=== PATIENT | male | born 1965 | race Caucasian/White ===

== ENCOUNTER → 2017-08-14 07:39 | Outpatient (CLI) | payer OTHER, SELFPAY ==
--- NOTE | 2017-08-14 07:49 | RAD_ITS ---
STUDY: X-RAY - RIGHT ANKLE REASON FOR EXAM: Male, 51 years old. Acute ankle pain TECHNIQUE: 3 view(s) of the ankle. COMPARISON: None. FINDINGS: Normal visualized distal tibia and fibula. Normal medial and lateral malleoli. Normal tibiotalar articulation and ankle mortise. Normal visualized talus and calcaneus. The visualized subtalar, talonavicular, calcaneocuboid and tarsal articulations are normal. The soft tissue structures are unremarkable. RAD/Ankle min 3 Views IMPRESSION: Normal x-ray examination of the ankle. Electronically Signed: Ander Lr DO at 11:43 EDT Tel , Service support ,
== END ==
PROVIDERS: Family Provider Internal Medicine; PCP Internal Medicine; Visit Provider Internal Medicine
DX: M25.571 Pain in right ankle and joints of right foot (principal)
CPT/HCPCS: 73610

== ENCOUNTER → 2018-02-13 14:17 | Outpatient (CLI) | payer OTHER, SELFPAY ==
--- NOTE | 2018-02-13 14:20 | US_ITS ---
STUDY: RENAL ULTRASOUND - COMPLETE REASON FOR EXAM: Male, 52 years old. BPH with urinary obstruction TECHNIQUE: Ultrasound evaluation of the kidneys was performed with real-time and static townsend-scale imaging. COMPARISON: None. FINDINGS: RIGHT KIDNEY: Normal location of the right kidney, which is normal in size. The right kidney measures 11.7 x 5.0 x 4.2 cm. There is a normal cortex of the right kidney. The renal cortex measures 1.2 cm. There is no right renal mass or cyst. There are no right renal calculi. There is no right hydronephrosis. DISTAL RIGHT URETER: There is non-visualization of the distal right ureter. There is no demonstrated right ureterovesical junction calculus. There is a visualized right ureteral jet. LEFT KIDNEY: Normal location of the left kidney, which is normal in size. The left kidney measures 10.7 x 5.5 x 4.2 cm. There is a normal cortex of the left kidney. The renal cortex measures 1.1 cm. There is no left renal mass or cyst. There are no left renal calculi. There is no left hydronephrosis. DISTAL LEFT URETER: There is non-visualization of the distal left ureter. There is no demonstrated left ureterovesical junction calculus. There is a visualized left ureteral jet. Prostate volume is measured at 32 mL BLADDER: The distended urinary bladder has a volume of 131 ml. The empty urinary bladder has a volume of less than 10 ml. There is a normal wall thickness of the distended urinary bladder. There is no demonstrated mass within the urinary bladder. There are no demonstrated bladder calculi. US/Kidney and Bladder IMPRESSION: 1. No hydronephrosis. 2. No significant postvoid urinary bladder residual volume. Electronically Signed: Silvino Ramos MD at 16:49 EST , Service support ,
== END ==
PROVIDERS: Family Provider Internal Medicine; PCP Internal Medicine; Referring Provider Internal Medicine; Visit Provider Internal Medicine
DX: N40.1 Benign prostatic hyperplasia with lower urinary tract symptoms (principal); N13.8 Other obstructive and reflux uropathy
CPT/HCPCS: 76770

== ENCOUNTER → 2018-02-24 13:05 | Outpatient (CLI) | payer SELFPAY ==
--- NOTE | 2018-02-24 13:13 | CT_ITS ---
STUDY: CARDIAC CALCIUM SCORING - CT CHEST REASON FOR EXAM: Male, 52 years old. Elevated cholesterol in a nonsmoker. RADIATION DOSAGE (If Supplied By Facility): CTDIvol = ( 12.19 ) mGy, DLP = ( 292.55 ) mGycm TECHNIQUE: Axial non-enhanced images were acquired through the heart for the sole purpose of measuring coronary artery calcium. Individualized dose optimization techniques were used for this CT. COMPARISON: Chest, November 03, 2014. FINDINGS: Visualized surrounding anatomy: There are calcified lymph nodes in the subcarinal space and left hilum. Left Main Coronary Artery: 0 Left Anterior Descending Artery: 0 Left Circumflex Artery: 0 Right Coronary Artery: 0 Other: Total Calcium Score: 0 CT/Limited Chest CT w/CCTA IMPRESSION: A Calcium Score of 0 places the patient in the approximate 0 percentile, based on the [facility] data calculator. Please go to: [email or web address].[email or web address] , for a description of the calculator. Electronically Signed: Shun Mane DO at 16:02 EST Tel [phone], Service support ,
[2018-02-24 13:48] VITALS: BP 114/69; PULSE 56; RESP 16; O2SAT 99; BMI 28.8
--- NOTE | 2018-02-24 17:20 | CA.SCORE ---
Calcium Scoring Date of Study:: 02/24/18 Coronary Calcium Scoring: Coronary calcium score: 0.0 Conclusion: Coronary calcium score: 0.0 Results: The patient underwent CT imaging of the chest on 02/24/2018 with attention to the coronary arteries for the purpose of analyzation of the presence and extent of coronary artery calcification. Coronary calcium quantification software was utilized. The patient was reported as tolerating the procedure well. The coronary calcium score was reported at 0.0. According to pre-published reference tables this is indicative of no identifiable atherosclerotic plaque and very low cardiovascular disease risk with a less than 5% chance of the presence of coronary artery disease. Impression: Coronary calcium score: 0.0 This note was generated using a voice recognition system and there may be incorrect words, spelling or punctuation that were not noted when reviewing the office note prior to saving.
--- NOTE | 2018-02-24 17:23 | CCTA_ITS ---
Calcium Scoring Date of Study:: 02/24/18 Coronary Calcium Scoring: Coronary calcium score: 0.0 Conclusion: Coronary calcium score: 0.0 Results: The patient underwent CT imaging of the chest on 02/24/2018 with attention to the coronary arteries for the purpose of analyzation of the presence and extent of coronary artery calcification. Coronary calcium quantification software was utilized. The patient was reported as tolerating the procedure well. The coronary calcium score was reported at 0.0. According to pre-published reference tables this is indicative of no identifiable atherosclerotic plaque and very low cardiovascular disease risk with a less than 5% chance of the presence of coronary artery disease. Impression: Coronary calcium score: 0.0 This note was generated using a voice recognition system and there may be incorr ect words, spelling or punctuation that were not noted when reviewing the office note prior to saving.
== END ==
PROVIDERS: Family Provider Internal Medicine; PCP Internal Medicine; Referring Provider Internal Medicine; Visit Provider Internal Medicine
DX: E78.5 Hyperlipidemia, unspecified (principal); R79.89 Other specified abnormal findings of blood chemistry; Z82.49 Family history of ischemic heart disease and other diseases of the circulatory system
CPT/HCPCS: 75571; 76380

== ENCOUNTER → 2019-01-06 16:07 | Outpatient (CLI) | payer OTHER, SELFPAY ==
[2019-01-04 16:30] VITALS: BMI 29.5
--- NOTE | 2019-01-06 16:16 | RAD_ITS ---
STUDY: X-RAY - CERVICAL SPINE REASON FOR EXAM: Male, 53 years old. Neck and left arm pain. TECHNIQUE: 5 view(s) of the cervical spine were obtained. COMPARISON: None FINDINGS: Normal anterior atlantoaxial articulation. Normal odontoid process. Normal cervical lordosis. Normal vertebral bodies and endplates. There is mild loss of disc height at C5-6. There is minimal neural foraminal narrowing on the left at C4-5 and on the right at C5-6. There is no evidence of acute fracture or loss of vertebral axial height.. The soft tissue structures are unremarkable. RAD/Cerv Spine 4 or 5 Views IMPRESSION: Minimal degenerative changes of the cervical spine. Electronically Signed: Shun Mane DO at 19:09 EDT Tel [phone], Service support ,
== END ==
PROVIDERS: Family Provider Internal Medicine; PCP Internal Medicine; Referring Provider Internal Medicine; Visit Provider Internal Medicine
DX: M79.602 Pain in left arm (principal)
CPT/HCPCS: 72050

== ENCOUNTER → 2019-01-20 06:31 | Outpatient (CLI) | payer OTHER, SELFPAY ==
[2019-01-04 16:30] VITALS: BMI 29.5
--- NOTE | 2019-01-20 06:49 | MRI_ITS ---
STUDY: MRI CERVICAL SPINE WITHOUT CONTRAST REASON FOR EXAM: Male, 53 years old. Left arm pain, finger numbness, neck pain TECHNIQUE: Standardized fat and water weighted pulse sequences were obtained in the sagittal and axial planes. COMPARISON: Previous cervical spine x-rays obtained on 01/06/2019 FINDINGS: Normal foramen magnum and brainstem-cervical cord junction. Normal craniovertebral junction. Normal anterior atlantoaxial articulation. Normal odontoid process. Normal cervical lordosis. Normal vertebral bodies and posterior osseous elements. C2-3: Normal endplates. Normal disc height, signal and morphology. Normal central canal and intervertebral neural foramina. C3-4: Normal endplates. Normal disc height, signal and morphology. Normal central canal and intervertebral neural foramina. C4-5: Normal endplates. Normal disc height, signal and morphology. Normal central canal and intervertebral neural foramina. C5-6: Normal endplates. A minimally bulging disc is noted this location with no evidence of disc herniation or spinal stenosis. Normal central canal and intervertebral neural foramina. C6-7: Normal endplates. There is a left lateral disc protrusion/herniation extending into the left neural foramina partly covered by a spur off the inferior endplate of C6. This is causing narrowing of the left C6-7 neural foramina with probable effacement of the exiting left C7 nerve root. Normal right intervertebral neural foramina. There is minimal effacement of the left side of the cervical subarachnoid space and minimal effacement of the left cervical spinal cord caused by this lateral disc protrusion/herniation. C7-T1: Normal endplates. Normal disc height, signal and morphology. Normal central canal and intervertebral neural foramina. Normal cervical cord. No evidence of a Chiari I malformation is identified. The cervical spinal cord appears to be normal with no abnormal focal areas of increased signal identified. Normal visualized soft tissue structures. MRI/Spine Cervical (Routine) IMPRESSION: A lateral disc protrusion/herniation is noted at C6-7 intervertebral disc space level on the left. This disc/ spur complex is causing occlusion of the left C6-7 neural foramina with probable compression of the exiting left C7 nerve root. Electronically Signed: Viet Buck, at 8:22 EDT Tel , Service support ,
== END ==
PROVIDERS: Family Provider Internal Medicine; PCP Internal Medicine; Referring Provider Internal Medicine; Visit Provider Internal Medicine
DX: M79.602 Pain in left arm (principal)
CPT/HCPCS: 72141

== ENCOUNTER 2019-01-22 15:00 | Outpatient (RCR) | payer OTHER, SELFPAY ==
[2019-01-04 16:30] VITALS: BMI 29.5
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
--- NOTE | 2019-03-05 07:25 | HP.PT.NRP ---
HP - Discharge Summary (1) - Patient Information CAROLE URIAS was seen in my office for initial evaluation on 01/14/19. The following Plan of Care was established for this patient: Initial Frequency: 1x/Week Initial Duration: 2 Weeks - Anticipated Interventions Patient/Client Instruction: Educate patient on: Condition, Plan of Care For the Purpose of:: To improve self management This patient was last seen in our office . Pertinent comments regarding their Physical therapy will appear below: Pt was treated for 2 PT visits for L arm pain through the date of 01/22/19. Pt has not returned through todays date and is discontinued at this time. At this point I will be discontinuing this patient from physical therapy. I would be happy to see this patient again in the future if found appropriate by the physician. Thank you! Jed Meredith, PT, ATC
== END 2019-01-22 19:00 | disposition home or self-care (01) ==
LOC: PT 15:00
PROVIDERS: Family Provider Internal Medicine; PCP Internal Medicine; Visit Provider Internal Medicine
DX: M79.601 Pain in right arm (principal); M75.01 Adhesive capsulitis of right shoulder
CPT/HCPCS: 97014; 97035; 97161; 97530; G0283

== ENCOUNTER 2019-06-08 12:30 | Outpatient (RCR) | payer OTHER, SELFPAY ==
[2019-02-18 17:30] VITALS: BMI 29.5
--- NOTE | 2019-04-15 13:02 | HP.PTEVAL ---
Patient's Visit Information CAROLE URIAS is a 53 year old M referred to Physical Therapy by FRITZ Aj with a diagnosis of S/P CERVICAL FUSION. Date of Evaluation: 04/15/19 Physical Therapist: Kandi Simpson PT, Cert MDT - Visit Plan Frequency: 2-3x /Week Duration: 4-6 Weeks Plan: MONITOR LEFT UE SX'S - INDEX FINGER STILL FEELS A LITTLE FUNNY. POSTURE CORRECTION/STRENGTHENING, INSTRUCTION IN APPROPRIATE BODY MECHANICS AND ACTIVITY MODIFICATIONS. OK TO BEGIN CERVCIAL ROM MAY 06 2019 (TENTATIVE RTW DATE IS 05/10/19 LIGHT DUTY) THERESA UE ROM, STRETCHING AND STRENGTHENING. HEP INSTRUCTION. PATIENT REPORTS HE JUST HAD A RE-CHECK AT THE SURGEONS OFFICE AND WAS INSTRUCTED TO START BEING OUT OF THE BRACE 2 HOURS THEN BACK ON 2 HOURS FOR THIS WEEK THEN NEXT WEEK PUSH BEING OUT OF IT 3 OR MORE HOURS AT A TIME. OTHER RESTRICTIONS: NO LIFTING MORE THAN 5 LBS. DON'T TURN HEAD YET. AVOID BENDING OVER TO PICK THINGS UP. - Subjective Findings: Diagnosis: S/P ANTERIOR CERVICAL DISCECTOMY AND DECOMPRESSION 03/29/[address] AURY LUZ. Work/Leisure: WORKS FOR [employer] - VERY PHYSICAL. Disability: NO. Present symptoms: NECK PAIN. NO UE SX'S. HAD LUE SX'S BEFORE SURGERY BUT THEY SEEM TO HAVE MOSTLY RESOLVED. Present since: DEC 21 2018. Pain Scale: Worst - 2/10 Least - 1/10. Currently: 04/23. Commenced as a result of: I WAS JUST WALKING ACROSS THE PARKING LOT AT WORK. Symptoms at onset: NECK PAIN. Worse: LYING BACK IN CHAIR TO GO TO SLEEP - STILL SLEEPING IN THE CHAIR WITH NECK BRACE ON. SITTING. TURNING HEAD. Better: CHANGE OF POSITION. Disturbed sleep: YES. Previous history/Previous treatment: CHRONIC NECK PROBLEMS FOR ABOUT 15 YEARS. [facility]. H/O CHIROPRACTIC TREATMENTS OFF AND ON FOR ABOUT 15 YEARS. NO YODIT'S. THIS IS FIRST NECK SURGERY. Dizziness: NO. Tinnitis: NO. Nausea: NO. Shortness of Breath: NO. Difficulty Swollowing: MILD. Gait: NORMAL. Accidents: NO. Unexplained weight loss: NO. Imaging: X-RAY AT CHECK UP FRIDAY - EVERYTHING LOOKS GOOD. PMH/Recent major surgery: 2014 HERNIA REPAIR. MACULAR DEGENERATION. RIGHT SHLD REHAB - DOES PRETTY GOOD. OTHER: PATIENT REPORTS HE JUST HAD A RE-CHECK AT THE SURGEONS OFFICE AND WAS INSTRUCTED TO START BEING OUT OF THE BRACE 2 HOURS THEN BACK ON 2 HOURS FOR THIS WEEK THEN NEXT WEEK PUSH BEING OUT OF IT 3 OR MORE HOURS AT A TIME. OTHER RESTRICTIONS: NO LIFTING MORE THAN 5 LBS. DON'T TURN HEAD YET. AVOID BENDING OVER TO PICK THINGS UP. - Objective Sitting Posture/Standing Posture: FORWARD HEAD AND ROUNDED SHLD'S. NO TORTICOLLIS. Active Correction of posture: BETTER. Other Observations: INDEP GAIT AND TRANSFERS. DID NOT WEAR NECK BRACE INTO PT. INCISION LOOKS GOOD WITHOUT ANY SIGNS OF INFECTION. Motor deficit: THERESA UE STRENGTH GROSSLY 4/5. RIGHT PRODUCT MARKETING COORDINATOR STRENGTH 70 LBS, LEFT 53 LBS. RIGHT HAND DOMINANT. Sensory deficit: THERESA UE LIGHT TOUCH SENSATION APPEARS INTACT AND SYMMETRICAL. ROM deficit: THERESA UE ROM WNL EXCEPT THERESA SHOULDER FLEX LIMITED ABOUT 25% EA. SHLD FLEX TESTED ONE ARM AT A TIME AND MILD DISCOMFORT REPORTED IN NECK AT THE END OF THE AVAILABLE RANGE THERESA. Reflexes: NT. Dural Signs: NEGATIVE THERESA UE'S. Cervical Mvmt Loss: NT. Postural strength: POOR. THER ACT: HEP INCLUDING SUB MAX CERVICAL ISO'S ALL PLANES X 3 SEC EA, HOLDING FOR A COUNT OF 3, 3 TIMES A DAY. INSTRUCTED PATIENT IN PROPER WORK STATION ERGONOMICS AND ENCOURAGED PATIENT TO START A WALKING PROGRAM, AVOID PROLONGED SITTING AND PROLONGED DEVICE USE. EMPHASIZED THE IMPORTANCE OF KEEPING EX'S AND ACTIVITIES IN A COMFORTABLE RANGE ONLY. INSTRUCTION IN AVOIDANCE OF PERIPHERALIZATION OF SX'S. - Goals Goal 1:: DECREASE C/O NECK PAIN Goal Time Frame: 4-6 Weeks Goal 2:: IMPROVE PERSONAL CARE, LIFTING, SLEEP, WORK, DRIVING AND RECREATIONAL FUNCTION. Goal Time Frame: 4-6 Weeks Goal 3:: INSTRUCT IN PROPHYLAXIS Goal Time Frame: 4-6 Weeks - Rehabilitation Potential Rehabilitation Potential: Fair - Anticipated Interventions Patient/Client Instruction: Educate patient on: Condition, Plan of Care, Risk Factors, Benefits of Fitness Program For the Purpose of:: To improve self management Therapeutic Exercise to Include: Strength training, Body mechanics, Postural training, Active ROM, Scapular Strength/Stabilization For the Purpose of:: To decrease pain, To increase ROM, To improve muscle performance and motor function, To increase tolerance to activity/condition/position, To improve ability of physical actions for home/community/work/leisure Thank you for the opportunity to evaluate your patient. For Medicare and Medicare HMO plans, please review the plan of care and approve it. It will need to be FAXED BACK to us at [phone] for Medicare purposes. For Medicare only, by signing this I certify the plan of care. Please let me know if there are questions or concerns regarding this plan of care. Physician Signature: Date:
--- NOTE | 2019-05-06 10:46 | HP.PTREVAL_ITS ---
Leah Sue, KATY-C, It has been my pleasure to treat CAROLE URIAS over the last 6 visits for S/P CERVICAL FUSION 03/29/19. Please see the progress note below for an update on the physical therapy plan of care! Subjective: PATIENT REPORTS HE IS GETTING BETTER. REPORTS THE NUMBNESS IN HIS FIRST 3 FINGER TIPS ON THE LEFT HAND IS UNCHANGING THOUGH. INTERMITTENT CRAMPING IN THE THE LEFT AXILLARY AREA AND TRICEP REGION BUT IT IS MILD. SLEEPING BETTER. ONLY WEARING NECK BRACE AT NIGHT NOW. PATIENT REPORTS HE CAN RAISE HIS ARMS BETTER AND HE CAN GET HIS SHIRTS ON A LOT EASIER. BENDING DOWN IS A LOT BETTER TOO TO GET PANTS, SHOES AND SOCKS ON. PET CARE IS EASIER TOO. HEP IS GOING GOOD. Objective/Function: PATIENT WAS SEEN TODAY FOR RE-ASSESSMENT OF PROGRESS TOWARD THE SET PT GOALS AND THE NEED FOR FURTHER PHYSICAL THERAPY VS READINESS FOR DISCHARGE. REVIEWED HEP - GOOD UNDERSTANDING. PATIENT IS MAKING GOOD PROGRESS TOWARD PT GOALS AND IS A GOOD CANDIDATE TO CONTINUE PT. UPON EXAM TODAY: Motor deficit: THERESA UE STRENGTH GROSSLY 5/5. RIGHT NAIL TECHNICIAN TEACHER STRENGTH 83 LBS, LEFT 64 LBS. RIGHT HAND DOMINANT. Sensory deficit: THERESA UE LIGHT TOUCH SENSATION APPEARS INTACT AND SYMMETRICAL. ROM deficit: THERESA UE ROM WNL EXCEPT LEFT SHOULDER FLEX LIMITED ABOUT 10%. PATIENT REPORTS AXILLA AREA STRETCH WITH LUE ELEVATION BUT NO NECK PAIN WITH TESTING. Dural Signs: NEGATIVE THERESA UE'S. Cervical Mvmt Loss: FLEX MOD. EXT MOD. PRO MIN. RET MOD. RSB MOD. LSB MOD. R ROT MOD. L ROT MOD. Postural strength: FAIR. OTHER: PATIENT DID WELL WITH ALL EX'S TODAY AND COMMUNICATED A GOOD UNDERSTANDING OF ALL INISTRUCTIONS AFTER GIVEN. Plan Plan: CONT PT 2X'S A WK X 4 WKS. MONITOR LEFT UE SX'S - INDEX FINGER STILL FEELS A LITTLE FUNNY. POSTURE CORRECTION/STRENGTHENING, INSTRUCTION IN APPROPRIATE BODY MECHANICS AND ACTIVITY MODIFICATIONS. THERESA UE ROM, STRETCHING AND STRENGTHENING. HEP INSTRUCTION. PATIENT REPORTS HE JUST HAD A RE-CHECK AT THE SURGEONS OFFICE AND WAS INSTRUCTED TO START BEING OUT OF THE BRACE 2 HOURS THEN BACK ON 2 HOURS FOR THIS WEEK THEN NEXT WEEK PUSH BEING OUT OF IT 3 OR MORE HOURS AT A TIME. OTHER RESTRICTIONS: NO LIFTING MORE THAN 5 LBS. DON'T TURN HEAD YET. AVOID BENDING OVER TO PICK THINGS UP. Goals Goal 1:: DECREASE C/O NECK PAIN Goal Time Frame: 4-6 Weeks Goal Progress: Progressing Goal 2:: IMPROVE PERSONAL CARE, LIFTING, SLEEP, WORK, DRIVING AND RECREATIONAL FUNCTION. Goal Time Frame: 4-6 Weeks Goal Progress: Progressing Goal 3:: INSTRUCT IN PROPHYLAXIS Goal Time Frame: 4-6 Weeks Goal Progress: Progressing Anticipated Interventions Patient/Client Instruction: Educate patient on: Condition, Plan of Care, Risk Factors, Benefits of Fitness Program For the Purpose of:: To improve self management Therapeutic Exercise to Include: Strength training, Body mechanics, Postural training, Active ROM, Scapular Strength/Stabilization For the Purpose of:: To decrease pain, To increase ROM, To improve muscle performance and motor function, To increase tolerance to activity/condition/position, To improve ability of physical actions for home/community/work/leisure Please do not hesitate to contact me at [phone] by phone or if you have questions or concerns regarding this new plan of care! Sincerely, Kandi Simpson, PT, Cert MDT
--- NOTE | 2019-06-08 12:57 | HP.PTDCSUM_ITS ---
HP - PT D/C Summary It has been my pleasure to treat CAROLE URIAS under orders from FRITZ Aj, for the diagnosis of S/P CERVICAL FUSION 03/29/19 for a total of 14 visit(s). Discharge Date: 06/08/19 Please see the following information for a summary of their discharge status. - Subjective Subjective: PATIENT REPORTS HE IS DOING BETTER. READY TO GO BACK TO WORK. PATIENT REPORTS BEING RELEASED BY SURGEON BACK TO WORK FULL DUTY (EXCEPT NO LIFTING > 60 LBS AND NO LIFTING OVER-HEAD). ALSO RELEASED HIM FROM THERAPY. STATES HE IS DOING HIS HEP. OCCASSIONAL NECK PAIN - ESPECIALLY WITH SUDDEN MVMTS. STILL HAS NUMBNESS IN LEFT FINGER TIPS AND INTERMITTENT LEFT UE CRAMPING - REPORTS DR YATES FORENSIC PSYCHOLOGIST STATES IT COULD TAKE UP TO YEAR FOR IT TO GO AWAY. PATIENT REPORTS HIS LEFT UE CRAMPING IS NOT BAD AND NOT OFTEN. - Pain Neck Pain Intensity (Out of 10): 1 - Overall Improvement % Improvement: 75 - Objective Objective/Function: PATIENT WAS SEEN TODAY FOR RE-ASSESSMENT OF PROGRESS TOWARD THE SET PT GOALS AND THE NEED FOR FURTHER PHYSICAL THERAPY VS READINESS FOR DISCHARGE. PATIENT HAS MADE GREAT PROGRESS WITH PT. ALL GOALS MET. UPON EXAM TODAY: Motor deficit: THERESA UE STRENGTH GROSSLY 5/5. RIGHT SCREWHEAD STONER AND POLISHER STRENGTH 96 LBS, LEFT 73 LBS. RIGHT HAND DOMINANT. Sensory deficit: THERESA UE LIGHT TOUCH SENSATION APPEARS INTACT AND SYMMETRICAL. ROM deficit: THERESA UE ROM WNL EXCEPT LEFT SHOULDER FLEX LIMITED ABOUT 5% - NO C/O PAIN OR CRAMPING WITH TESTING TODAY BUT PATIENT REPORTS STILL OCCASSIONAL SX WITH REACHING. Dural Signs: NEGATIVE THERESA UE'S. Cervical Mvmt Loss: FLEX MIN. EXT MIN. PRO NIL. RET MOD. RSB MIN. LSB MIN. R ROT MIN. L ROT MIN. Postural strength: GOOD - Goals Goal 1:: DECREASE C/O NECK PAIN Goal Progress: Goal Met Goal 2:: IMPROVE PERSONAL CARE, LIFTING, SLEEP, WORK, DRIVING AND RECREATIONAL FUNCTION. Goal Progress: Goal Met Goal 3:: INSTRUCT IN PROPHYLAXIS Goal Progress: Goal Met - Plan Plan: D/C - PATIENT AGREEABLE. - D/C Information If there are questions or concerns regarding this patient's physical therapy, please feel free to call me at [phone]. Thank you for the referral of this patient. Sincerely, Kandi Simpson, PT, Cert MDT
== END 2019-06-08 19:00 | disposition home or self-care (01) ==
LOC: PT 12:30
PROVIDERS: Family Provider Internal Medicine; PCP Internal Medicine; Referring Provider Nurse Practitioner; Visit Provider Nurse Practitioner
DX: Z98.1 Arthrodesis status (principal)
CPT/HCPCS: 97110; 97162; 97164; 97530

== ENCOUNTER → 2023-02-07 | Outpatient (CLI) | payer OTHER, SELFPAY ==
--- NOTE | 2023-02-07 16:20 | RAD_ITS ---
STUDY: X-RAY - LUMBAR SPINE REASON FOR EXAM: Male, 57 years old. Left low back pain TECHNIQUE: 3 view(s) of the lumbar spine were obtained. COMPARISON: None FINDINGS: Normal lumbar lordosis. There is no substantial scoliosis. There is a normal alignment of the vertebrae. Normal vertebral bodies and endplates. Normal disc space heights. The soft tissue structures are unremarkable. RAD/Lumbar Spine 2 or 3 Views IMPRESSION: Normal x-ray examination of the lumbar spine. Electronically Signed: Nixon Gregorio MD at 10:31 EDT ,
== END | disposition home or self-care (01) ==
PROVIDERS: PCP Internal Medicine; Referring Provider Internal Medicine; Visit Provider Internal Medicine
DX: M54.50 Low back pain, unspecified (principal)
CPT/HCPCS: 72100

== ENCOUNTER 2023-03-04 18:00 | Outpatient (RCR) | payer OTHER, SELFPAY ==
--- NOTE | 2023-02-06 18:10 | HP.PTEVAL ---
Patient's Visit Information Visit Information Visit Information: CAROLE URIAS is a 57 year old M referred to Physical Therapy by Dr. Reena Medina MD with a diagnosis of BPPV and back pain. Date of Evaluation: 02/06/23 Physical Therapist: Eric Rosales, DPT, OCS, CSCS Visit Plan Frequency: 2x /Week Duration: 4-6 Weeks Plan: 2x/week for 2-6 weeks as needed for 1. EG to check positional and treat as needed if still dizzy at night. 2. ext bias LB ROM and core strength and postural correction to HEP. Subjective Subjective: Vertigo. I have it for months, not sure how it started? Lying at night makes him spin and eye movement. Lasts for a few minutes. Happens weekly at first then more often, now about 5x week. bednig adn looking can also cause it or turning fast. No other problems woith that and life is normal otherwise. just has to slow down for a minute. 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 Sleep is OK. Home activities are pretty normal. has to be careful up on ladder. Also has back pain. chronic LBP for months. Got a new semi and seat not as comfy. Worse in the evening. Was hard to lie down at first but better now. Activities at home are careful with lifting and moving things. Does some stretching at night which may heklp a little. Pain LBP: Pain Intensity (Out of 10): 0 Pain Intensity Range: 0 and 3 Objective Objective: Walks normal and good balance. Trasnfers I, some pain in supine LB but otherwise good. Steps reciprocal without rail. cervical aROM WFL and no pain LE adn UE AROM WFL, HS max tight at -35 90/90 test. - slump - SLR reflexes 2/3 patella and achilles Sensation LE WNL to gross light touch. - L hallpike timothy + R hallpike timothy for up torsional delayed and for 35 sec + but does fatigue, treated with R josé manuel. Balance/Special Test Scores Dizziness Score: 22 Goals Goal 1:: Sleep at night without dizzyness or back pain. Goal Time Frame: 4-6 Weeks Goal 2:: Full LB AROm without pain in extension Goal Time Frame: 2-4 Weeks Goal 3:: I appropriate HEP to reduce future problems with back pain Goal Time Frame: 4-6 Weeks Goal 4:: diazzyness abolished rolling looking down Goal Time Frame: 4-6 Weeks Goal 5:: Pt feel 90% better. Goal Time Frame: 4-6 Weeks Goal 6:: 2 or less DHI Goal Time Frame: 2-4 Weeks Rehabilitation Potential Physical Therapy Diagnosis: BPPV dizzyness and back pain postural effecting qulaity of life./comfort. Rehabilitation Potential: Good Anticipated Interventions Patient/Client Instruction: Educate patient on: Condition and Plan of Care For the Purpose of:: To decrease pain, To increase ROM, To improve nutrient delivery to tissue and To increase tolerance to activity/condition/position Therapeutic Exercise to Include: Strength training, Flexibilty training, Passive ROM, Active ROM and Dynamic Lumbar Stabilization For the Purpose of:: To decrease pain, To increase ROM, To improve nutrient delivery to tissue, To increase tolerance to activity/condition/position and To improve ability of physical actions for home/community/work/leisure Manual Therapy Techniques to Include: Mobilization and Passive ROM For the Purpose of:: To decrease pain, To increase ROM and To improve nutrient delivery to tissue Text: Thank you for the opportunity to evaluate your patient. For Medicare and Medicare HMO plans, please review the plan of care and approve it. It will need to be FAXED BACK to us at [phone] for Medicare purposes. For Medicare only, by signing this I certify the plan of care. Please let me know if there are questions or concerns regarding this plan of care. Physician Signature: Date:
--- NOTE | 2023-03-04 18:20 | HP.PTDCSUM ---
Discharge Summary D/C summary: It has been my pleasure to treat CAROLE URIAS referred by Dr. Reena Medina MD, with the diagnosis of BPPV and back pain for a total of 5 visit(s). Discharge Date: 03/04/23 Please see the following information for a summary of their discharge status. Subjective Subjective: Dizzyness going the right way. Was good until 3 days ago when it acted up a little dizzy feeling out of it for a few minutes. Funnyish all day. A littel bit at night since then but not bad. HEP: BD 8 reps daily. Back pain has been good. Last few days posture has been worse as he was sitting on couch too much as he has been off work. HEP for back not bad and getting them in every other day. To [facility] in a couple weeks. Pain LBP: Pain Intensity (Out of 10): 0 Overall Improvement % Improvement: 60 Objective Objective/Function: - B hallpike timothy - roll test LB AORM stiff in extension but not painful, others feel good. Walking well and funcitoning well today and has been. Comfortable with how he is doing and will cotninue via HEP and f/u with doctor in a couple weeks. Goals Goal 1:: Sleep at night without dizzyness or back pain. Goal Progress: Progressing Goal 2:: Full LB AROm without pain in extension Goal Progress: Goal Met Goal 3:: I appropriate HEP to reduce future problems with back pain Goal Progress: Goal Met Goal 4:: diazzyness abolished rolling looking down Goal Progress: in clinic Goal 5:: Pt feel 90% better. Goal Progress: 60+ Goal 6:: 2 or less DHI Goal Progress: Progressing Plan Plan: d/c to HEP, to doctor B in a few weeks. D/C Information d/c sentence: If there are questions or concerns regarding this patient's physical therapy, please feel free to call me at [phone]. Thank you for the referral of this patient. Sincerely, Eric Rosales, DPT, OCS, CSCS Balance/Gait/Functional tests Balance/Special Test Scores Dizziness Score: 6 Improvement % Improvement: 60
== END 2023-03-04 19:00 | disposition home or self-care (01) ==
LOC: PT 18:00
PROVIDERS: PCP Internal Medicine; Visit Provider Internal Medicine
DX: R42 Dizziness and giddiness (principal); M54.50 Low back pain, unspecified
CPT/HCPCS: 97110; 97162; 97164; 97530

== ENCOUNTER → 2023-04-04 | Outpatient (CLI) | payer SELFPAY ==
--- NOTE | 2023-04-04 12:47 | CT_ITS ---
STUDY: CT CHEST WITHOUT CONTRAST REASON FOR EXAM: Male, 57 years old. HYPERLIPIDEMIA RADIATION DOSAGE (If Supplied By Facility): CTDIvol = ( 12.19 ) mGy, DLP = ( 316.93 ) mGycm TECHNIQUE: Transaxial imaging was performed without the administration of intravenous contrast material. Cardiac over read examination. Individualized dose optimization techniques were used for this CT. COMPARISON: No relevant priors. FINDINGS: CHEST The lungs are normal. There is no demonstrated pleural abnormality. Normal heart and pericardium. No coronary artery calcification is seen. There are multiple small lymph nodes within the mediastinum, which are normal in size and morphology most compatible with reactive lymph hyperplasia. Calcified left hilar lymph nodes. Normal unenhanced pulmonary arteries. Normal aorta arch and descending thoracic aorta. Normal osseous structures. There is no demonstrated abnormality of the visualized upper abdomen. CT/Limited Chest CT Cardiac Only IMPRESSION: No acute abnormality is present. Electronically Signed: Pierce Reddy MD at 14:18 EST ,
== END | disposition home or self-care (01) ==
LOC: CT 12:45
PROVIDERS: PCP Internal Medicine; Referring Provider Internal Medicine; Visit Provider Internal Medicine
DX: E78.5 Hyperlipidemia, unspecified (principal)
CPT/HCPCS: 75571; 76380

== ENCOUNTER → 2023-04-09 07:29 | Outpatient (REF) | payer SELFPAY ==
--- NOTE | 2023-04-04 14:49 | CA.SCORE ---
Calcium Scoring Date of Study:: 04/04/23 Indications Indications: Family history hyperlipidemia Coronary Calcium Scoring: High-resolution Computed Tomographic imaging of the chest was performed on [04/04/2023], with particular attention paid to the coronary arteries. Images from the examination were analyzed for the presence and extent of coronary artery calcification , using coronary calcium quantification software. The patient tolerated the procedure well and there were no complications. The results of the coronary calcification analysis are provided below. Findings Coronary Artery Left Main (LM): 0 Left Anterior Descending (LAD): 0 Left Circumflex (LCX): 0 Right Coronary Artery (RCA): 0 Total Agatston Score: 0 Percentile Rankin Calcium Scoring Interpretation: Different methods to categorize the overall amount of coronary plaque. Overall amount CAC SIS Visual of coronary plaque P1 Mild -100 <2 1-2 vessels with mild amount of plaque P2 Moderate 101-300 3-4 1-2 vessels with moderate amount, 3 vessels with mild amount of plaque P3 Severe 301-999 5-7 3 vessels with moderate amount, 1 vessel with severe amount of plaque P4 Extensive >1000 >8 2-3 vessels with severe amount of plaque Conclusion: No atherosclerotic plaquing noted.
== END ==
LOC: CVS 07:29
PROVIDERS: PCP Internal Medicine
DX: Z00.00 Encounter for general adult medical examination without abnormal findings (principal)

== ENCOUNTER → 2024-06-22 | Outpatient (CLI) | payer OTHER, SELFPAY ==
--- NOTE | 2024-06-22 16:37 | RAD_ITS ---
PROCEDURE: FOOT MIN 3 VIEWS REASON FOR EXAM: PAIN IN FOOT TECHNIQUE: Three views of the right foot COMPARISON: None. FINDINGS: See impression RAD/Foot min 3 Views IMPRESSION: Negative for acute fracture or malalignment. No significant arthropathy. Post erior and inferior calcaneal enthesopathy. Reading Location: [facility]
== END | disposition home or self-care (01) ==
LOC: MTRAD 16:35
PROVIDERS: PCP Internal Medicine; Referring Provider Podiatrist; Visit Provider Podiatrist
DX: M13.879 Other specified arthritis, unspecified ankle and foot (principal)
CPT/HCPCS: 73630

== ENCOUNTER → 2024-08-23 | Outpatient (CLI) | payer OTHER, SELFPAY ==
--- NOTE | 2024-08-23 17:05 | RAD_ITS ---
PROCEDURE: CHEST PA AND LATERAL 08/23/2024 REASON FOR EXAM: CHEST PAIN TECHNIQUE: Frontal and lateral views of the chest. 2 frontal and lateral, 3 total images FINDINGS: The lungs are clear. Pulmonary vascularity appears within limits. No pleural effusion. The visualized osseous structures appear within limits. Partially imaged anterior cervical disc fusion hardware noted. RAD/Chest PA and Lateral IMPRESSION: No evidence of acute disease. Reading Location: [id number]
== END | disposition home or self-care (01) ==
LOC: MTRAD 17:04
PROVIDERS: PCP Internal Medicine; Referring Provider Internal Medicine; Visit Provider Internal Medicine
DX: R07.9 Chest pain, unspecified (principal)
CPT/HCPCS: 71046

== ENCOUNTER → 2024-09-13 | Outpatient (CLI) | payer OTHER, SELFPAY ==
--- NOTE | 2024-09-13 12:34 | STRESSREP ---
Stress Test Report Date: 09/13/2024 Procedure: Exercise tolerance test/imaging study Indications: Chest pain Consent: Per the patient Procedure: The patient exercised on a Harsh protocol for 8 minutes and 15 seconds achieving a peak heart rate of 171 bpm (106% predicted maximal heart rate) with a peak blood pressure 192/64 mmHg and a peak MET capacity of 10.1 METs. The baseline ECG demonstrated sinus rhythm. The peak exercise ECG did not show any ischemic changes. Rare PVC noted. The functional capacity was considered very good. There was no complaint of chest discomfort during exercise or recovery. The examination was discontinued secondary to target heart rate being achieved. The patient was injected with 15.0 mCi of technetium 99m Cardiolite and subsequently rest SPECT Cardiolite nuclear imaging was obtained in the horizontal long, vertical long, and short axis views. Post-exercise, the patient was injected with 44.1 mCi of technetium 99m Cardiolite and subsequently stress SPECT Cardiolite nuclear imaging was obtained in the horizontal long, vertical long, and short axis views. A gated Cardiolite study at peak stress was obtained. Rest and stress SPECT Cardiolite nuclear imaging status post realignment, normalization, and attenuation correction, demonstrates the appearance of relative uniform tracer uptake and myocardial perfusion appearing within normal limits. There is end systolic thickening and brightening. The gated Cardiolite study demonstrates myocardial thickening and inward wall motion. The reported LVEF is 65%. Impression: 1. Technically adequate (percent predicted maximal heart rate greater than 85%) exercise tolerance test 2. Peak exercise ECG with no diagnostic ischemic changes 3. Rare PVC noted 4. Rest and stress SPECT Cardiolite nuclear imaging demonstrate relative uniform tracer uptake and myocardial perfusion appearing within normal limits. 5. The gated Cardiolite study reports an LVEF of 65%. This note was generated with [employer] software. It may contain incorrect words, spelling, and punctuation that were not noted in checking the note before signing.
== END | disposition home or self-care (01) ==
LOC: CVS 06:23
PROVIDERS: PCP Internal Medicine; Referring Provider Internal Medicine; Visit Provider Internal Medicine
DX: R07.9 Chest pain, unspecified (principal)
CPT/HCPCS: 78452; 93017; A9500; A4216

== ENCOUNTER → 2025-02-17 | Outpatient (CLI) | payer OTHER, SELFPAY ==
[2025-02-17 10:49] LABS: Mucous, Urine 0 SEEN /hpf (<or=2+); Red Blood Cells-Urine 0 SEEN /hpf (0-5); Squamous Epithelial Cells - UA 0 SEEN /hpf (0-5)
[2025-02-17 10:55] LABS: Color, Urine Yellow (Yellow); Glucose, Dipstick Normal (Normal); Ketone-Dipstick Negative (Negative); Leukocyte Esterase-Dipstick Negative /ul (Negative); Nitrite-Dipstick Negative (Negative); Occult Blood-Urine Negative /ul (Negative); Protein-Dipstick Negative (Negative); Specific Gravity, Urine 1.015 (1.002-1.030); Urine Bilirubin Dipstick Negative (Negative)
[2025-02-17 11:06] LABS: Hematocrit 48.7 % (40-54); Hemoglobin 15.7 g/dL (13.0-16.5); Immature Granulocytes Count 0.020 X10^3/uL (0.0-0.0); Mean Corp Hgb Conc 32.2 g/dL (32-36); Mean Corpuscular Volume 89.5 fL (80-94); Mean Platelet Vol. 10.9 fl (6.2-12.0); NRBC Flagged by Analyzer 0 % (0-5); Platelet Count 283 K/mm3 (150-450); RBC Distribution Width CV 13.2 % (11.6-14.6); RBC Distribution Width SD 42.8 fl (35.1-43.9); Red Blood Count 5.44 M/mm3 (4.6-6.2); White Blood Count 6.7 K/mm3 (4.4-11.0)
[2025-02-17 11:17] LABS: AST(SGOT) 22 U/L (<=37); Alanine Aminotransfer ALT/SGPT 18 U/L (<=46); Albumin, Serum 4.4 g/dL (3.4-4.8); Alkaline Phosphatase 47 U/L (40-129); Anion Gap 9 (5-15); BUN 13 mg/dL (4-19); BUN/Creat Ratio 10.7 RATIO (10-20); Calcium,Total 9.3 mg/dL (7.6-11.0); Carbon Dioxide 25.7 mmol/L (21.0-32.0); Chloride 105 mmol/L (98-108); Globulin 2.3 g/dL (2.2-4.2); Glucose 91 mg/dL (70-99); Potassium 4.5 mmol/L (3.3-5.1)
[2025-02-24 12:09] LABS: Testosterone, % Free 3.40 % (1.50-4.20); Testosterone, Free 30.57 ng/dL (5.00-21.00)
== END | disposition home or self-care (01) ==
LOC: LABSPEC 10:33
PROVIDERS: PCP Internal Medicine; Referring Provider Internal Medicine; Visit Provider Internal Medicine
DX: E34.9 Endocrine disorder, unspecified (principal); N40.1 Benign prostatic hyperplasia with lower urinary tract symptoms
CPT/HCPCS: 80053; 81001; 84402; 84403; 85025